=== PATIENT | female | born 1985 | race Caucasian/White ===

== ENCOUNTER 2020-06-25 06:13 | Day surgery (SDC) | payer MEDICAID, OTHER ==
[~2020-06-25] VITALS: Ht 160 cm; Wt 100.0 kg
[2020-06-25] VITALS (11 sets, daily range): BP systolic 98–138; BP diastolic 53–96
[~2020-06-25 06:13] MED LIST: DEPO PROVERA
[2020-06-25] MEDS ORDERED: SCOPOLAMINE 1.5 MG (TRANSDERM-SCOP) PATCH TOP ONE (07:00)
[2020-06-25] MEDS ORDERED: metroNIDAZOLE 500 MG/100 ML IVPB (PRE-MIX) IV ONE (07:00)
[2020-06-25] MEDS ORDERED: ceFAZolin 2 GM/50 ML (PRE-MIXED) IV ONE (07:00)
[2020-06-25] MEDS ORDERED: FAMOTIDINE 20MG/2ML IV (PEPCID) IV ONE (07:00)
[2020-06-25] MEDS ORDERED: CATHETER FLUSH 10 ML SYR IV PRN (07:00)
[2020-06-25] MEDS ORDERED: ONDANSETRON 4 MG/2 ML (SDV) Z0FRAN IV ONE (07:00)
[2020-06-25] MEDS: LACTATED RINGERS 1,000 ML IV PRN ×2 (07:03→08:56)
[2020-06-25] MEDS ORDERED: GLYCOPYRROLATE 0.2 MG/ML (ROBINUL) 2 ML VIAL ONE (07:05)
[2020-06-25] MEDS ORDERED: SEVOFLURANE (ULTANE) 15 ML INHAL SOLN ONE (07:05)
[2020-06-25] MEDS ORDERED: fentaNYL INJECTION 100 MCG/2 ML AMP ONE (07:05)
[2020-06-25] MEDS ORDERED: ONDANSETRON 4 MG/2 ML (SDV) Z0FRAN ONE (07:05)
[2020-06-25] MEDS ORDERED: LIDOCAINE PF 2% 5 ML (XYLOCAINE) VIAL ONE (07:05)
[2020-06-25] MEDS ORDERED: proPOfol 200 MG/20 ML (DIPRIVAN) VIAL IV ONE (07:05)
[2020-06-25] MEDS ORDERED: MIDAZOLAM 2 MG/2 ML (VERSED) VIAL ONE (07:05)
[2020-06-25] MEDS ORDERED: ROCURONIUM 10 MG/ML 5 ML SYRINGE IV ONE (07:05)
[2020-06-25] MEDS ORDERED: NEOSTIGMINE 3 MG/3 ML VIAL ONE (07:05)
[2020-06-25] MEDS ORDERED: BUPIVACAINE 0.25% 30 ML (SENSORCAINE) VIAL ONE (07:20)
--- NOTE | 2020-06-25 07:52 | Progress Note-Pre Operative ---
Pre-Operative Progress Note H&P Reviewed The H&P was reviewed, patient examined and no changes noted. Bleeding increased overnight and began passing very large clots and cramping. Mild bleeding currently. Date Seen by Provider: Jun 25, 2020 Time Seen by Provider: 07:40 Date H&P Reviewed: Jun 25, 2020 Time H&P Reviewed: 07:00 Pre-Operative Diagnosis: incomplete AB, ovarian cyst, with possible rupture NALDO MARIE DO Jun 25, 2020 07:52
[2020-06-25] MEDS ORDERED: ONDANSETRON 4 MG/2 ML (SDV) Z0FRAN IVP PRN ×2 (08:00→09:30)
[2020-06-25] MEDS ORDERED: HYDROmorphone 2 MG/ML VIAL (DILAUDID) IV ONE (08:00)
[2020-06-25] MEDS ORDERED: morphine INJ 10 MG/ML 1ML (SYR OR VIAL) IVP ONE (08:00)
[2020-06-25] MEDS ORDERED: PHENYLEPHRINE 100 MCG/ML 10 ML (ANESTHESIA) SYR ONE (08:23)
[2020-06-25 08:35] LABS: HEMOGLOBIN 10.3 g/dL (11.5-16.0)
[2020-06-25] MEDS ORDERED: KETOROLAC 30 MG/ML VIAL ONE (09:18)
[2020-06-25] MEDS ORDERED: HYDROmorphone 2 MG/ML VIAL (DILAUDID) ONE (09:20)
[2020-06-25] MEDS ORDERED: D5 LR IV SOLUTION 1,000 ML IV SCH (09:29)
--- NOTE | 2020-06-25 09:29 | Operative Report ---
Operative Report Date of Procedure/Surgery Jun 25, 2020 Surgeon (s) NALDO MARIE DO Plasterer Stucco (s): NA Post-Operative Diagnosis menorrhagia, possibly missed AB PID/TOA Procedure Performed Dilation and curettage, laparoscopy with lysis of peritubal and periovarian adhesions Description of Procedure Anesthesia Type: General Estimated blood loss (mL): minimal Specimen(s) collected/removed endometrial curettings Description of the Procedure With informed consent the patient was taken to the operating room where general anesthesia was found to be adequate. She was then prepped and draped in the usual sterile fashion in the dorsolithotomy position. A bhatt catheter was jamar kristen in the bladder. A weighted speculum was placed in the vagina and the cervix was visualized. She was actively passing quarter sized clots and the cervix was slightly dilated. I then grasped the cervix with a single toothed tenaculum and then the uterus was sounded to approximately 8 cm. The cervix was now dilated with Rony dilators and then a gentle suction was done with a curved 8 suction curette. I then followed up with a sharp curette until a gritty texture was heard. Once this was completed, a Aldair uterine manipulator was inserted to provide a means of manipulation of the uterus. Attention was now turned to the abdomen. The umbilicus was injected with 0.25% Marcaine and a skin incision was made. The veress needle was now inserted and intraabdominal placement was confirmed with a saline drop test and a drop in pressure. The 5 mm laparoscope was now inserted under direct visualization with the Optiview. There was an omental adhesion noted inferior to the umbilicus. Two additional trocars were placed in the left lower quadrant, lateral to the rectus muscles and avoiding the inferior epigastric vessels. The lower was a 10 mm trocar and the upper was 5 mm. I then took down the omental adhesion with the harmonic scalpel and blunt dissection. I then was able to visualize the ovaries and tubes bilaterally. There were peritubal adhesions and periovarian adhesions noted. More significant on the left. There was not any evidence of endometriosis. The cul de sac was free of fluid or blood. There was likely old pelvic inflammatory disease. The tubes appeared patent. I then took down the adhesions of the tube to the ovaries and the ovaries to the posterior culdesac. The left ovary was more densely adherent. I was able to take these down without significant bleeding. There was likely a corpus luteum on the left ovary, but this was not significant once the adhesions were taken down. The pelvis was now copiously irrigated with sterile water. There was no active bleeding noted. The tubes appeared patent. The gas and the instruments were removed from the abdomen. The trocars were removed under direct visualization. The umbilical fascia incision was closed with a figure of 8 stitch of 0 Vicryl. The skin incision was closed with 4-0 Monocryl and the additional incisions were closed with Skin Affix. Bandages were placed. Instruments were removed from the vagina. The patient was awakened and taken to the recovery room in stable condition. Sponge, lap, needle and instrument counts were correct times two. Findings of the Procedure moderate amount of curettings no free fluid/bleeding in the pelvis right tubal and ovarian adhesions, no active ovarian cyst, no active endometriosis Left tube with adhesions and ovarian adhesions (more severe than the right) No obvious abnormal cyst (may be a CL) no endometrioma or endometriosis Suspect old PID Adhesion of omentum to abdominal wall Allergies and Home Medications Allergies Coded Allergies: No Known Drug Allergies (Verified , 10/22/08) Home Medications Acetaminophen 500 Mg Tablet, 1,000 MG PO Q8H PRN for PAIN-MILD (1-4) Prescribed by: NALDO MARIE on 06/25/20934 Ibuprofen 800 Mg Tablet, 600 MG PO Q6HR Prescribed by: NALDO MARIE on 06/25/20934 Oxycodone Hcl 5 Mg Tab, 5 MG PO Q4H PRN for PAIN-SEVERE (8-10) Prescribed by: NALDO MARIE on 06/25/20934 Patient Home Medication List Home Medication List Reviewed: Yes NALDO MARIE DO Jun 25, 2020 09:29
[2020-06-25] MEDS ORDERED: KETOROLAC 30 MG/ML VIAL IVP ONE (09:30)
[2020-06-25] MEDS ORDERED: ACETAMINOPHEN 500 MG TAB (TYLENOL) PO PRN (09:30)
--- NOTE | 2020-06-25 09:34 | Discharge Inst-Simple/Standard ---
Discharge Inst-Standard Reconcile Patient Problems Problems Reviewed?: Yes Discharge Medications New, Converted or Re-Newed RX: RX on Chart Patient Instructions/Follow Up Plan of Care/Instructions/FU: follow up next week for incision check and to discuss pathology/follow up Activity as Tolerated: No (nothing in the vagina for 6 weeks, no lifting over 15 lbs for 4 weeks, no driving for 7 days, may return to work once cleared) Discharge Diet: No Restrictions Return to The Hospital For: fever, bleeding > 1 pad per hour x 2 hours Other Inst to Patient call office for questions or concerns NALDO MARIE DO Jun 25, 2020 09:34
[2020-06-25] MEDS ORDERED: IBUP-1780 PO (09:35)
[2020-06-25] MEDS ORDERED: ACET-93 PO (09:35)
[2020-06-25] MEDS ORDERED: OXC5T PO (09:35)
[2020-06-25] MEDS ORDERED: PROMETHAZINE INJ 25 MG/ML (PHENERGAN) AMP IVP ONE (09:45)
[2020-06-25] MEDS ORDERED: diphenhydrAMINE 25 MG TAB (BENADRYL) PO ONE ×2 (10:39→10:45)
[2020-06-25] MEDS ORDERED: IBUPROFEN 800 MG (MOTRIN) TAB PO SCH (12:00)
--- NOTE | 2020-06-25 13:39 | Anesthesia-General Post-Op ---
General Patient Condition Mental Status/LOC: Same as Preop Cardiovascular: Satisfactory Nausea/Vomiting: Absent Respiratory: Satisfactory Pain: Controlled Complications: Absent Post Op Complications Complications None Follow Up Care/Instructions Patient Instructions None needed. Anesthesia/Patient Condition Patient Condition Patient was seen this morning after the procedure and she was doing well, no complaints, stable vital signs, no apparent adverse anesthesia problems. HUANG SANABRIA DO Jun 25, 2020 13:39
== END 2020-06-25 12:00 | disposition home or self-care (01) ==
LOC: SDC 06:13
PROVIDERS: ATTEND Obstetrics & Gynecology
DX: N92.0 Excessive and frequent menstruation with regular cycle (principal); O03.4 Incomplete spontaneous abortion without complication; E11.9 Type 2 diabetes mellitus without complications; N93.9 Abnormal uterine and vaginal bleeding, unspecified; N94.9 Unspecified condition associated with female genital organs and menstrual cycle; E66.01 Morbid (severe) obesity due to excess calories; Z68.39 Body mass index [BMI] 39.0-39.9, adult; Z79.899 Other long term (current) drug therapy; Z80.3 Family history of malignant neoplasm of breast; Z80.9 Family history of malignant neoplasm, unspecified; Z82.3 Family history of stroke
CPT/HCPCS: 36415; 85014; 85018; 87081; 87635; 88305